=== PATIENT | female | born 1935 | race Caucasian/White ===

== ENCOUNTER 2016-08-11 19:26 | Emergency (ER) | payer MEDICARE, OTHER ==
[~2016-08-11] VITALS: Ht 152.4 cm; Wt 56.8 kg
[2016-08-11 19:34] VITALS: Ht 152.4 cm; Wt 56.8 kg
[2016-08-11 20:14] LABS: ADD SCAN DIFF NO
[2016-08-11 20:16] LABS: BASOPHILS % 0.6 % (0.0-2.0); EOSINOPHILS # 0.1 10^3/ul (0.0-0.5); HEMATOCRIT 26.2 % (37.0-47.0); LYMPHOCYTES # 2.1 10^3/ul (0.8-2.9); LYMPHOCYTES % 32.3 % (15.0-51.0); MEAN CORPUSCULAR HEMOGLOBIN 26.1 pg (29.0-33.0); MEAN CORPUSCULAR HGB CONC 30.5 g/dl (32.0-37.0); MEAN CORPUSCULAR VOLUME 85.6 fl (82.0-101.0); MEAN PLATELET VOLUME 9.5 fl (7.4-10.4); MONOCYTE # 0.6 10^3/ul (0.3-0.9); MONOCYTES % 10.1 % (0.0-11.0); NEUTROPHIL # 3.5 10^3/ul (1.6-7.5); NEUTROPHILS % 54.5 % (39.0-77.0); PLATELET COUNT 251 10^3/UL (140-415); RED BLOOD COUNT 3.06 10^6/ul (4.20-5.40); RED CELL DISTRIBUTION WIDTH 15.7 % (11.5-14.5); WHITE BLOOD COUNT 6.4 10^3/ul (4.8-10.8)
[2016-08-11 20:30] LABS: ALBUMIN 3.4 g/dl (3.3-4.9); CHLORIDE 107 mmol/L (97-110)
[2016-08-11 20:31] LABS: POTASSIUM 4.2 mmol/L (3.5-5.1); SODIUM 143 mmol/L (135-144)
[2016-08-11 20:33] LABS: ALANINE AMINOTRANSFERASE 14 IU/L (13-69); ALBUMIN/GLOBULIN RATIO 0.97; ALKALINE PHOSPHATASE 64 IU/L (42-121); ANION GAP 16 (8-16); ASPARTATE AMINO TRANSFERASE 17 IU/L (15-46); BLOOD UREA NITROGEN 32 mg/dl (7-20); CARBON DIOXIDE 24 mmol/L (21-31); CREATININE 2.99 mg/dl (0.44-1.00); GLUCOSE 103 mg/dl (70-220); TOTAL PROTEIN 6.9 g/dl (6.1-8.1)
[2016-08-11 20:34] LABS: CALCIUM 9.3 mg/dl (8.4-10.2)
[2016-08-11] MEDS ORDERED: ERGO500037 PO (20:39)
[2016-08-11] MEDS ORDERED: LOSA1TAB20 PO (20:40)
[2016-08-11] MEDS ORDERED: CLON0.2T5 PO (20:40)
[2016-08-11] MEDS ORDERED: AMLO5TAB4 PO (20:41)
[2016-08-11] MEDS ORDERED: [UNRECOGNIZED DRUG - CODE] PO (20:41)
[2016-08-11] MEDS ORDERED: ASPI-664 PO (20:42)
[2016-08-11 20:43] LABS: ACETAMINOPHEN < 10.0 ug/ml (10.0-30.0); ETHANOL < 10.0 mg/dl; SALICYLATE < 1.0 mg/dl (5.0-30.0)
[2016-08-11] MEDS ORDERED: CALC0.255 PO (20:43)
[2016-08-11] MEDS ORDERED: CARV25TA79 PO (20:44)
[2016-08-11] MEDS ORDERED: BENA40TA41 PO (20:44)
[2016-08-11] MEDS ORDERED: NIFE60TA7 PO (20:45)
[2016-08-11] MEDS ORDERED: ZOLP10TA5 PO (20:45)
[2016-08-11] MEDS ORDERED: NEPH PO (20:46)
[2016-08-11] MEDS ORDERED: PROP20TA4 PO (20:46)
[2016-08-11] MEDS ORDERED: TRAM-40 PO (20:47)
[2016-08-11] MEDS ORDERED: ROSU20TA PO (20:48)
[2016-08-11] MEDS ORDERED: OMEP40CA6 PO (20:48)
[2016-08-11] MEDS ORDERED: FURO40TA4 PO (20:49)
[2016-08-11] MEDS ORDERED: HYDR-3011 PO (20:49)
--- NOTE | 2016-08-11 20:49 | RADRPT ---
PROCEDURE: CT Brain without contrast. CLINICAL INDICATION: Altered Mental Status TECHNIQUE: A multiplanar CT of the brain was performed on a CT scanner utilizing axial imaging fro m the skull base through the vertex without IV contrast. The CTDIvol is 44.52 mGy and the DLP is 63 0.2 mGycm. One or more of the following dose reduction techniques were utilized: Automated exposur e control, adjustment of the mA and/or kV according to patient size, use of iterative reconstruction technique. COMPARISON: None FINDINGS: No evidence of intracranial hemorrhage or abnormal extra-axial fluid collection. Moderate patchy periventricular and subcortical white matter low attenuation compatible with sequela e of chronic microvascular ischemic injury. The brain parenchyma is otherwise normal attenuation a nd morphology with preservation of casarez white differentiation. The ventricles and subarachnoid space s are prominent compatible with mild central cerebral volume loss . The basal cisterns, posterior fossa contents, brainstem, craniocervical junction, orbits, pituitary axis, paranasal sinuses, mastoid air cells, and calvarium are unremarkable. IMPRESSION: 1. No intracranial hemorrhage or acute intracranial abnormality. 2. Chronic microvascular ischemic changes in the deep white matter and mild central cerebral volume loss. 3 Early ischemic injury may be occult to CT imaging and diffusion weighted MRI may be considered as clinically warranted. RPTAT:AAJJ Physician Fuentes Date Time Electronically viewed and signed by Physician Fuentes on 08/11/2016 20:49 OG/
[2016-08-11 21:48] LABS: ADD UMIC YES; URINE BILIRUBIN (Dip) NEGATIVE (NEGATIVE); URINE BLOOD (Dip) NEGATIVE (NEGATIVE); URINE COLOR LT. YELLOW (YELLOW); URINE GLUCOSE (Dip) NEGATIVE (NEGATIVE); URINE KETONES (Dip) NEGATIVE (NEGATIVE); URINE LEUKOCYTE ESTERASE (Dip) NEGATIVE (NEGATIVE); URINE NITRITE (Dip) NEGATIVE (NEGATIVE); URINE TOTAL PROTEIN (Dip) 2+ (NEGATIVE); URINE UROBILINOGEN (Dip) 0.2 E.U./dL (0.1-1.0)
[2016-08-11 22:02] LABS: BARBITURATES Negative (NEGATIVE); BENZODIAZEPINES Negative (NEGATIVE); CANNABINOIDS Negative (NEGATIVE); COCAINE Negative (NEGATIVE)
--- NOTE | 2016-08-11 22:04 | ERD ---
ER Documentation Chief Complaint Date/Time DATE: 08/11/16 TIME: 22:03 Chief Complaint ALOC,lethargic and confused during dinner,received Narcan from paramedics HPI This is an 80-year-old female who presents to the emergency room for altered mental status. According to the patient's family members this patient was eating food and started to become tired. The patient then fell asleep. There were concerned so they called 911. Paramedics arrived and stated they gave this patient Narcan with relief of her symptoms. This patient did take an Ambien before eating dinner. According to family members of patient is acting normally at this time. ROS All systems reviewed and are negative except as per history of present illness. Medications Home Meds Reported Medications Furosemide* (Furosemide*) 40 Mg Tablet, 40 MG PO QAM, TAB 08/11/16 Hydroxyzine Hcl* (Hydroxyzine Hcl*) 25 Mg Tablet, 25 MG PO QHS Y for ITCHING, # 30 TAB 08/11/16 Omeprazole* (Omeprazole*) 40 Mg Capsule.dr, 40 MG PO QAM, #30 CAP 08/11/16 Rosuvastatin Calcium* (Crestor*) 20 Mg Tablet, 20 MG PO DAILY, #30 TAB 08/11/16 Tramadol Hcl* (Ultram*) 50 Mg Tablet, 50 MG PO Q6H Y for PAIN, TAB TAKE 1 OR 2 TAB FOR PAIN 08/11/16 Multivit/Ca Carb/B Cmplx/Fa* (Ana María-Rodrigo*) 1 Tab Tab, 1 TAB PO DAILY, TAB 08/11/16 Propranolol Hcl* (Propranolol Hcl*) 20 Mg Tablet, 20 MG PO TID, TAB 08/11/16 Zolpidem Tartrate* (Zolpidem Tartrate*) 10 Mg Tablet, 10 MG PO QHS Y for INSOMNIA, #30 TAB 08/11/16 Nifedipine* (Nifedipine ER*) 60 Mg Tablet.sa, 60 MG PO BID, TAB.SA 08/11/16 Benazepril Hcl* (Benazepril Hcl*) 40 Mg Tablet, 40 MG PO DAILY, #30 TAB 08/11/16 Carvedilol* (Carvedilol*) 25 Mg Tablet, 25 MG PO DAILY, #60 TAB 08/11/16 Calcitriol* (Rocaltrol*) 0.25 Mcg Capsule, 0.25 MCG PO BID A WEEK, CAP 08/11/16 Aspirin* (Aspirin* EC) 81 Mg Tablet.dr, 81 MG PO DAILY, TAB 08/11/16 Amlodipine Besylate* (Norvasc*) 5 Mg Tablet, 5 MG PO DAILY, TAB 08/11/16 Acetaminophen (PHARBETOL) 500 Mg Tablet, 500 MG PO TID, TAB 08/11/16 Losartan-Hydrochlorothiazide (Losartan-HCTZ) 100-25 Mg Tab, 1 TAB PO DAILY, TAB 08/11/16 Clonidine Hcl* (Clonidine Hcl*) 0.2 Mg Tablet, 0.2 MG PO Q4H Y for HTN, TAB 08/11/16 Ergocalciferol (Vitamin D2) (VITAMIN D2) 50,000 Unit Capsule, 91354 UNIT PO [id number], CAP 08/11/16 Allergies Allergies: Coded Allergies: No Known Allergy (Unverified , 08/11/16) PMhx/Soc History of Surgery: No Anesthesia Reaction: No Hx Neurological Disorder: No Hx Respiratory Disorders: No Hx Cardiac Disorders: No (HTN, hyperlipidemia, ) Hx Alcohol Use: No Hx Substance Use: No Hx Tobacco Use: No Smoking Status: Never smoker Physical Exam Vitals Vital Signs Date Time Temp Pulse Resp B/P Pulse Ox O2 Delivery O2 Flow Rate FiO2 08/11/16 21:04 69 16 169/72 99 Room Air 08/11/16 20:00 76 17 181/81 100 Room Air 08/11/16 19:34 98.4 81 18 181/70 100 Physical Exam INITIAL VITAL SIGNS: Reviewed by me GENERAL: The patient is well developed and appropriate for usual state of health in no apparent distress HEENT: Pupils equal, round, and reactive to light. EOMI. There is no scleral icterus. NECK: C-spine is soft and supple, there is no meningismus. There is no cervical lymphadenopathy. LUNGS: Clear to auscultation bilaterally. There are no rales, wheezes or rhonchi. HEART: Regular rate and rhythm, no murmurs, clicks, rubs or gallops. ABDOMEN: Soft, non-tender, non-distended. There are bowel sounds in all four quadrants. No rebound or guarding. EXTREMITIES: There is no peripheral cyanosis or edema. No focal swelling or erythema. NEUROLOGICAL: The patient moves all four extremities with 5/5 strength. Cranial nerves II - XII are intact. Normal gait. Alert and oriented SKIN: There is no apparent rash or petechiae. HEME/LYMPHATIC: There is no evidence of excessive bruising or lymphedema. PSYCHIATRIC: The patient does not appear anxious or depressed. Result Diagram: 08/11/16 1950 08/11/16 1950 Results 24 hrs Laboratory Tests Test 08/11/16 19:50 08/11/16 19:58 08/11/16 21:14 Acetaminophen Level < 10.0ug/ml Alanine Aminotransferase (ALT/SGPT) 14IU/L Albumin 3.4g/dl Albumin/Globulin Ratio 0.97 Alkaline Phosphatase 64IU/L Anion Gap 16 Aspartate Amino Transf (AST/SGOT) 17IU/L Basophils # 0.010^3/ul Basophils % 0.6% Blood Urea Nitrogen 32mg/dl Calcium Level 9.3mg/dl Carbon Dioxide Level 24mmol/L Chloride Level 107mmol/L Creatinine 2.99mg/dl Direct Bilirubin 0.00mg/dl Eosinophils # 0.110^3/ul Eosinophils % 2.0% Ethyl Alcohol Level < 10.0mg/dl Globulin 3.50g/dl Glucose Level 103mg/dl Hematocrit 26.2% Hemoglobin 8.0g/dl Indirect Bilirubin 0.0mg/dl Lymphocytes # 2.110^3/ul Lymphocytes % 32.3% Mean Corpuscular Hemoglobin 26.1pg Mean Corpuscular Hemoglobin Concent 30.5g/dl Mean Corpuscular Volume 85.6fl Mean Platelet Volume 9.5fl Monocytes # 0.610^3/ul Monocytes % 10.1% Neutrophils # 3.510^3/ul Neutrophils % 54.5% Nucleated Red Blood Cells # 0.010^3/ul Nucleated Red Blood Cells % 0.0/100WBC Platelet Count 57042^3/UL Potassium Level 4.2mmol/L Red Blood Count 3.0610^6/ul Red Cell Distribution Width 15.7% Salicylates Level < 1.0mg/dl Sodium Level 143mmol/L Total Bilirubin 0.0mg/dl Total Protein 6.9g/dl White Blood Count 6.410^3/ul Bedside Glucose 111mg/dL Urine Amphetamines Screen Negative Urine Barbiturates Negative Urine Benzodiazepines Screen Negative Urine Bilirubin NEGATIVE Urine Cannabinoids Negative Urine Clarity CLEAR Urine Cocaine Screen Negative Urine Color LT. YELLOW Urine Glucose NEGATIVE% Urine Hemoglobin NEGATIVE Urine Ketones NEGATIVE Urine Leukocyte Esterase NEGATIVE Urine Microscopic RBC Pending Urine Microscopic WBC Pending Urine Nitrite NEGATIVE Urine Opiates Screen Negative Urine Specific [place] 1.020 Urine Total Protein 2+ Urine Urobilinogen 0.2 E.U./dL Urine pH 6.0 Procedures/MDM CT head without: 1. No intracranial hemorrhage or acute intracranial abnormality. 2. Chronic microvascular ischemic changes in the deep white matter and mild central cerebral volume loss. 3 Early ischemic injury may be occult to CT imaging and diffusion weighted MRI may be considered as clinically warranted. EKG: Rate/Rhythm: [Normal Sinus Rhythm] QRS, ST, T-waves: [No changes consistent w/ acute ischemia] Impression: [No evidence of ischemia or arrhythmia] This 80-year-old female presents to the emergency room for evaluation of weakness and altered mental status which was temporary and occurred after she took Ambien while eating. This patient presented to the emergency room after EMS brought the patient in. The EMS stated they give the patient Narcan with complete resolution of her symptoms. According to family members this patient took her Ambien before she started eating instead of after. When I evaluated this patient she was alert and oriented to person place and time, no focal neurological deficits. CT of the head was obtained which does not show any acute ischemia. Lab work is within normal limits. EKG is nonischemic. I talked to the family members were at bedside and state this patient is acting like her normal self. I do feel that this could have been secondary to missed timing of medications. This patient will be discharged home at this time. I advised him to return to the ER immediately if she develops any worsening symptoms and they verbalized understanding. They are comfortable with her plan of care Departure Diagnosis: Primary Impression: Altered level of consciousness Additional Impressions: Normocytic anemia Renal insufficiency Condition: Stable JAVIER NG DO Aug 11, 2016 22:04
[2016-08-11 22:08] LABS: OPIATES Negative (NEGATIVE)
[2016-08-11 22:14] LABS: URINE RBCS NONE SEEN /HPF (0)
[2016-08-11 22:35] VITALS: BP 182/76; PULSE 82; RESP 18; TEMP 97.8
== END 2016-08-11 22:35 | disposition home or self-care (01) ==
LOC: E/R 19:26
DX: R40.4 Transient alteration of awareness (principal); R40.2142 Coma scale, eyes open, spontaneous, at arrival to emergency department; D64.9 Anemia, unspecified; N28.9 Disorder of kidney and ureter, unspecified; R40.2362 Coma scale, best motor response, obeys commands, at arrival to emergency department; I10 Essential (primary) hypertension; R40.2242 Coma scale, best verbal response, confused conversation, at arrival to emergency department; Z79.82 Long term (current) use of aspirin
CPT/HCPCS: 36415; 70450; 80053; 80306; 80307; 81001; 81003; 82962; 85025

== ENCOUNTER 2017-06-02 13:37 | Emergency (ER) | END 2017-06-02 17:37 | disposition home or self-care (01) ==

== ENCOUNTER 2018-11-15 14:34 | Emergency (ER) | payer MEDICARE, OTHER ==
[2018-11-15] VITALS (10 sets, daily range): BP systolic 128–182; BP diastolic 55–83; PULSE 71–81; RESP 18–20
[~2018-11-15] VITALS: Wt 51.4 kg
[~2018-11-15 14:34] MED LIST: AMLO5TAB4 PO; ASPI-817 PO; BENA40TA56 PO; CALC0.255 PO; CARV25TA79 PO; CLON0.2T5 PO; CRES20 PO; ERGO500013 PO; FURO40TA4 PO; HYDR-843 PO; LOSA1TAB25 PO; NEPH PO; NIFE60TA18 PO; OMEP40CA6 PO; PROP20TA4 PO; TRAM50TA PO; ZOLP10TA5 PO; [UNRECOGNIZED DRUG - CODE] PO
[2018-11-15] MEDS ORDERED: ONDANSETRON 4 MG INJ IV STA (14:49)
[2018-11-15] MEDS ORDERED: LABETALOL HCL 20MG INJ ONE (14:56)
[2018-11-15] MEDS: niCARdipine-NS 0.1MG/ML DRIP 200 ML IV STA ×2 (15:06→15:08)
[2018-11-15] MEDS ORDERED: IOHEXOL 300MG/ML 150 ML BTL ONE (15:08)
[2018-11-15] MEDS ORDERED: SOD CHLORIDE 0.9% 100 ML ONE (15:08)
[2018-11-15] MEDS ORDERED: ALTEPLASE 100 MG INJ IV* ONE (15:30)
[2018-11-15] MEDS ORDERED: ALTEPLASE (tPA) 1 MG/ML BOLUS SYG IV* ONE (15:30)
[2018-11-15] MEDS ORDERED: SOD CHLORIDE 0.9% 50 ML IV ONE (15:30)
[2018-11-15] MEDS ORDERED: NEPH PO (15:53)
[2018-11-15] MEDS ORDERED: BENA40TA56 PO (15:53)
[2018-11-15] MEDS ORDERED: ROPI0.5T2 PO (15:53)
[2018-11-15] MEDS ORDERED: APIX2.5T PO (15:54)
[2018-11-15] MEDS ORDERED: CLON1PAT3 TD (15:54)
[2018-11-15] MEDS ORDERED: CARV25TA79 PO (15:55)
[2018-11-15] MEDS ORDERED: HYDR-843 PO (15:56)
[2018-11-15] MEDS ORDERED: CLON0.2T5 PO (15:57)
[2018-11-15] MEDS ORDERED: AMIO200T4 PO (15:57)
[2018-11-15] MEDS ORDERED: OMEP40CA6 PO (15:58)
[2018-11-15] MEDS ORDERED: IBUP-1542 PO (15:59)
[2018-11-15] MEDS ORDERED: ZOLP10TA5 PO (15:59)
[2018-11-15] MEDS ORDERED: LINA290C PO (15:59)
[2018-11-15] MEDS ORDERED: LEVO75TA5 PO (16:00)
[2018-11-15] MEDS ORDERED: ASPI-817 PO (16:00)
[2018-11-15] MEDS ORDERED: ERGO500013 PO (16:01)
[2018-11-15] MEDS ORDERED: ACET-141 PO (16:01)
[2018-11-15] MEDS ORDERED: LOSA1TAB25 PO (16:02)
[2018-11-15] MEDS ORDERED: PROP20TA4 PO (16:02)
[2018-11-15] MEDS ORDERED: TRAZ-111 PO (16:04)
--- NOTE | 2018-11-15 16:05 | ERD ---
ER Documentation Chief Complaint Chief Complaint SEE OTHER TRIAGE HPI This is an 83-year-old female who presents via EMS for possible acute stroke. History is extremely limited. The patient is nonverbal and has a gaze preference. It was reported that just 30 minutes prior to arrival after dialysis the patient became a phasic with gaze preference and unable to lift her right upper extremity. Code stroke was initiated upon arrival. Remainder of HPI is limited. A immediate rn recruitment was attempted. I spoke to the family on the phone. See documentation below. ROS Critical patient unable to assess Medications Home Meds Discontinued Reported Medications Furosemide* (Furosemide*) 40 Mg Tablet, 40 MG PO QAM, TAB 08/11/16 Hydroxyzine Hcl* (Hydroxyzine Hcl*) 25 Mg Tablet, 25 MG PO QHS PRN for ITCHING, #30 TAB 08/11/16 Omeprazole* (Omeprazole*) 40 Mg Capsule.dr, 40 MG PO QAM, #30 CAP 08/11/16 Rosuvastatin Calcium* (Crestor*) 20 Mg Tablet, 20 MG PO DAILY, #30 TAB 08/11/16 Tramadol Hcl* (Ultram*) 50 Mg Tablet, 50 MG PO Q6H PRN for PAIN, TAB TAKE 1 OR 2 TAB FOR PAIN 08/11/16 Multivit/Ca Carb/B Cmplx/Fa* (Ana María-Rodrigo*) 1 Tab Tab, 1 TAB PO DAILY, TAB 08/11/16 Propranolol Hcl* (Propranolol Hcl*) 20 Mg Tablet, 20 MG PO TID, TAB 08/11/16 Zolpidem Tartrate* (Zolpidem Tartrate*) 10 Mg Tablet, 10 MG PO QHS PRN for INSOMNIA, #30 TAB 08/11/16 Nifedipine* (Nifedipine ER*) 60 Mg Tablet.sa, 60 MG PO BID, TAB.SA 08/11/16 Benazepril Hcl* (Benazepril Hcl*) 40 Mg Tablet, 40 MG PO DAILY, #30 TAB 08/11/16 Carvedilol* (Carvedilol*) 25 Mg Tablet, 25 MG PO DAILY, #60 TAB 08/11/16 Calcitriol* (Rocaltrol*) 0.25 Mcg Capsule, 0.25 MCG PO BID A WEEK, CAP 08/11/16 Aspirin* (Aspirin* EC) 81 Mg Tablet.dr, 81 MG PO DAILY, TAB 08/11/16 Amlodipine Besylate* (Norvasc*) 5 Mg Tablet, 5 MG PO DAILY, TAB 08/11/16 Acetaminophen (PHARBETOL) 500 Mg Tablet, 500 MG PO TID, TAB 08/11/16 Losartan-Hydrochlorothiazide (Losartan-HCTZ) 100-25 Mg Tab, 1 TAB PO DAILY, TAB 08/11/16 Clonidine Hcl* (Clonidine Hcl*) 0.2 Mg Tablet, 0.2 MG PO Q4H PRN for HTN, TAB 08/11/16 Ergocalciferol (Vitamin D2) (VITAMIN D2) 50,000 Unit Capsule, 79426 UNIT PO [id number], CAP 08/11/16 Allergies Allergies: Coded Allergies: No Known Allergy (Unverified , 11/15/18) PMhx/Soc History of Surgery: No Anesthesia Reaction: No Hx Neurological Disorder: No Hx Respiratory Disorders: No Hx Cardiac Disorders: No (HTN, hyperlipidemia, ) Hx Psychiatric Problems: No Hx Alcohol Use: No Hx Substance Use: No Hx Tobacco Use: No FmHx Family History: diabetes Physical Exam Vitals Vital Signs Date Temp Pulse Resp B/P (MAP) Pulse Ox O2 O2 Flow FiO2 Time Delivery Rate 11/15/18 97.6 81 20 191/89 93 15:08 (123) Physical Exam General: Nonverbal, right facial droop, gaze preference to left Head: Normocephalic, atraumatic. Eyes: Pupils equally reactive, EOM intact ENT: Moist mucous membranes Neck: Supple, no lymphadenopathy Respiratory: Lungs clear bilaterally, no distress Cardiovascular: RRR, no murmurs, rubs, or gallops Abdominal: Soft, non-tender, non-distended, no peritoneal signs : Deferred MSK: No edema, no unilateral swelling Neurologic: Patient is nonverbal she has a left gaze preference. She has paralysis of her right upper extremity. Only subtle movement of her right lower extremity. She is moving her left upper extremity and left lower extremity. Exam is somewhat limited because the patient's leg which barrier, poor co operation. NIHSS calculated to be 17 Skin: No rash Psych: Normal mood Result Diagram: 11/15/18 1449 11/15/18 1449 Results 24 hrs Laboratory Tests Test 11/15/18 14:49 11/15/18 15:08 White Blood Count 9.2 10^3/ul Red Blood Count 3.83 10^6/ul Hemoglobin 10.4 g/dl Hematocrit 34.2 % Mean Corpuscular Volume 89.3 fl Mean Corpuscular Hemoglobin 27.2 pg Mean Corpuscular Hemoglobin Concent 30.4 g/dl Red Cell Distribution Width 17.4 % Platelet Count 201 10^3/UL Mean Platelet Volume 9.7 fl Immature Granulocytes % 0.500 % Neutrophils % 74.4 % Lymphocytes % 16.3 % Monocytes % 6.0 % Eosinophils % 2.3 % Basophils % 0.5 % Nucleated Red Blood Cells % 0.0 /100WBC Immature Granulocytes # 0.050 10^3/ul Neutrophils # 6.8 10^3/ul Lymphocytes # 1.5 10^3/ul Monocytes # 0.6 10^3/ul Eosinophils # 0.2 10^3/ul Basophils # 0.1 10^3/ul Nucleated Red Blood Cells # 0.0 10^3/ul Prothrombin Time 12.8 Sec Prothrombin Time Ratio 1.0 INR International Normalized Ratio 0.95 Activated Partial Thromboplast Time 35.4 Sec Sodium Level 139 mmol/L Potassium Level 4.0 mmol/L Chloride Level 96 mmol/L Carbon Dioxide Level 32 mmol/L Anion Gap 11 Blood Urea Nitrogen 14 mg/dl Creatinine 2.72 mg/dl Est Glomerular Filtrat Rate mL/min mL/min Glucose Level 127 mg/dl Hemoglobin A1c 5.0 % Calcium Level 8.9 mg/dl Total Bilirubin 0.3 mg/dl Direct Bilirubin 0.00 mg/dl Indirect Bilirubin 0.3 mg/dl Aspartate Amino Transf (AST/SGOT) 21 IU/L Alanine Aminotransferase (ALT/SGPT) 7 IU/L Alkaline Phosphatase 114 IU/L Creatine Kinase < 20 IU/L Creatine Kinase Index Creatinine Kinase MB (Mass) 0.48 ng/ml Troponin I 0.113 ng/ml Total Protein 8.4 g/dl Albumin 4.1 g/dl Globulin 4.30 g/dl Albumin/Globulin Ratio 0.95 Triglycerides Level 180 mg/dl Cholesterol Level 179 mg/dl LDL Cholesterol, Calculated 98 mg/dl HDL Cholesterol 45 mg/dl Cholesterol/HDL Ratio 3.9 RATIO Ethyl Alcohol Level < 10.0 mg/dl Bedside Glucose 133 mg/dL Current Medications Medications Dose Sig/Jcarlos Start Time Status Last (Trade) Ordered Route PRN Stop Time Admin Dose Reason Admin Ondansetron 4 mg ONCE STAT 6/13/19 DC HCl (Zofran IV 14:49 Inj) 11/15/18 14:50 Labetalol 20 mg STK-MED 11/15/18 DC HCl ONCE .ROUTE 14:56 (Labetalol) 11/15/18 14:57 Nicardipine 200 ml @ ONCE STAT 11/15/18 HCl 50 mls/hr IV 14:57 11/15/18 18:56 IV Flush 10 ml STK-MED 11/15/18 DC (NS 10 ml) ONCE .ROUTE 15:08 11/15/18 15:09 Sodium 100 ml @ ud STK-MED 11/15/18 DC Chloride ONCE .ROUTE 15:08 11/15/18 15:09 Iohexol 150 ml STK-MED 11/15/18 DC (Omnipaque ONCE .ROUTE 15:08 300mg/ ml) 11/15/18 15:09 Alteplase, 4.6 mg BOLUS OVER 1 11/15/18 DC 11/15/18 Recombinant MIN ONCE 15:30 15:45 (Activase) IV* 11/15/18 15:31 Alteplase, 41.6 mg ISCHEMIC 11/15/18 DC 11/15/18 Recombinant STROKE ONCE 15:30 15:46 (Activase) IV* 11/15/18 15:31 Sodium 50 ml @ 0 FLUSH AFTER 11/15/18 DC Chloride mls/hr TPA ONCE IV 15:30 11/15/18 15:31 Procedures/MDM EKG, MONITORS, & DIAGNOSTIC IMAGING: EKG: I reviewed and interpreted a 12-lead EKG. Rhythm: Normal sinus rhythm Ectopy: None Arrhythmia: None Intervals: No abnormalities ST segments: No elevations or depressions T waves: No contiguous inversions Interpretation: No acute cardiac ischemia Chest x-ray: I reviewed and interpreted a 1 view of the chest Mediastinum: No enlargement Cardiac silhouette: cardiomegaly Airspace: Interstitial process Bones: No evidence of fracture Interpretation: No acute cardiopulmonary process CT Brain: IMPRESSION: Cardiomegaly and thoracic aortic atherosclerosis with mild central pulmonary vascular congestion. Stable rightward tracheal deviation secondary to a large thyroid goiter. RPTAT: AAQQ CTA Head and Neck: Verbal report of a acute left M1 occlusion LAB INTERPRETATION: Labs reviewed, no absolute contraindications MEDICAL DECISION MAKING: The patient presents with acute neurologic deficit including what appears to be a left MCA ischemic stroke. A code stroke was rapidly initiated. ER COURSE: Stroke assessment and timing: Last known well time: 1403 Arrival to ED: 1434 Stroke code activation: [address] scan: [address]: See nursing documentation Initial neurology discussion: 1447 again at 1500 NIHSS: 17 TPA decision-making: The patient is a TPA candidate however has a few potential contraindications including recent heparin dosing, coagulation profile needed. Additionally the patient's blood pressure is greater than 185/110. Blood pressure control needed prior to TPA. Interventional decision-making: Patient is a interventional candidate given large vessel occlusion in the M1 segment. Patient will be transferred for higher level of care * At 1500 there was a conversation with Dr. Andersen that a CTA should be performed, the patient is pending blood pressure control with Cardene and laboratory results. We need to have the patient's coagulation results given dialysis patient with recent heparin administration * At 1511 I was able to speak to the granddaughter, Rylee, contact number is [phone]. She understands the critical nature and need for TPA. Risk benefits and alternatives were discussed with her. She is discussing with her uncle who is the patient's son. * They called back shortly after and agree with TPA. They are in route * Final lab results at 1528 * Final conversation with Dr. Andersen at 1531, states okay with TPA if blood pressure is controlled less than 185/110 * At 1536 blood pressure still 209/82 * At 1539 systolic blood pressure still 190 despite Cardene drip. Titration occurring * At 1540 the blood pressure is 180/79. TPA bolus timin TPA drip timin Reevaluation after TPA: Patient was slightly improved verbal response Stroke neurologist on-call: Dr. Andersen Critical Care Note: Total time: 50 minutes Indication/Organ System Threat: Acute neurologic deficit and stroke code activation that requires emergent evaluation and assessment to prevent neurologic compromising collapse. I spent the above amount of critical care time with the patient, not including billable procedures. This included chart review, consultations, repeat bedside evaluations, and titration of appropriate medications to prevent cardiopulmonary or respiratory collapse. * At [address] Mcgraw at [facility]. He has accepted the case and is sending critical care transport * The patient continues to protect her airway and does not require intubation prior to transportation. I kept the patient and/or family informed of laboratory and diagnostic imaging results throughout the emergency room course. DISPOSITION PLAN: Patient being transferred to [facility] for higher level of care Departure Diagnosis: Primary Impression: Acute ischemic left MCA stroke Additional Impressions: Hypertensive emergency End stage renal disease on dialysis Condition: Stable SAM OLVERA MD Nov 15, 2018 16:04
--- NOTE | 2018-11-15 17:35 | STROKE ---
Date/Time of Note Date/Time of Note DATE: 11/15/18 TIME: 15:44 Patient Information General Patient location: emergency Arrival Date Age 83 Gender female Weight 51.4 kg POC Glucose Glucose Result Bedside Glucose - 72 Hours Test 11/15/18 15:08 Bedside Glucose 133 mg/dL (70-220) Vital Signs Vital Signs Vital Signs Date Temp Pulse Resp B/P (MAP) Pulse Ox O2 O2 Flow FiO2 Time Delivery Rate 11/15/18 97.6 81 20 191/89 93 15:08 (123) Patient History Current Medications Allergies: Coded Allergies: No Known Allergy (Unverified , 11/15/18) Labs Coagulation Labs: Coagulation Test 11/15/18 14:49 Activated Partial Thromboplast Time 35.4 Sec (23.0-35.0) History & Physical Patient History Notes Pt Hx Reviewed History of Present Illness 83yo ESRD had dialysis, h/o thyroid mass, then confused with gaze to left, right sided weakness, and speech difficulty. Last normal 14:03. Patient speaks Tajik so spanish interpreter/translator was used but patient was unable to provide any history. Systolic BP 216. Review of Systems All Other Systems: Reviewed and Negative (unable to obtain due to clinical condidtion) NIH Stroke Scale NIH Stroke Scale Rnone7Br l4d LOC Questions: Zhfum9g OC Commands: Oznrc6f est Gaze: Mlsmg2u al: Zgjmn3o ial Palsy: Nyfvn9c tor Arm - Left: Vofwr1x ight: Alqjv1j - Left: Npwpf1h - Right: Jbjoz0k : Yeqgx8z Weuoj1p st Language: Bpviw1u thria: Jdkgp0q Bzqjg0o 4Bd Total Score: Kysen8x te/Time Recorded DATE: 11/15/18 TIME: 15:44 Submitted By Edouard Andersen t-PA Imaging Review Imaging Reviewed: Yes Date/Time Imaging Reviewed DATE: 11/15/18 TIME: 15:00 Imaging Findings no acute changes t-PA Administration Recommendation: Yes Weight 51.4 kg t-PA Recommendation Date/Time 11/15/18 15:30 Recommedation submitted by Edouard Andersen Recommendations Impression Diagnosis I63.512 Left MCA ischemic stroke Disposition transfer to [facility] stroke center Recommendation 83yo F presents with acute onset right sided weakness and speech difficulty. Neurological exam is notable for patient requiring repeated stimulation to attend, unable to answer questions or follow commands, with left gaze preference, right face, arm, and bilateral leg flaccid paralysis, no response to pain in right arm, decreased response to pain in the right leg, and being mute. I believe the patient is having an acute ischemic stroke. I discussed the risks, benefits, and alternatives of IV TPA in detail with the attending who is agreeable to my recommendation for IV TPA once systolic BP is less than 185 and if aPTT is within appropriate range. I recommend nicardipine drip for treatment of BP. I recommend stat CTA of the head and neck to de termine if the patient is a neurointerventional candidate. 15:30- I was called by Dr. Esposito and informed that aPTT= 35.4 and normal range is up to 35. I agreed that TPA is recommended once BP is less than 185. I was informed CTA was completed but images are still loading. 15:43- I called Dr. Esposito after reviewing CTA images. CTA demonstrates left M occlusion and recommend transfer for possible neurointerventional treatment. Dr. Esposito informed me that BP was now less than 185 and TPA was being administere d. He also informed me that patient has been accepted for transfer at [facility] for possible neurointerventional treatment. I recommend further workup include MRI Brain without gadolinium and transthoracic echocardiogram.I recommend post-TPA orders be followed. I recommend blood pressure be maintained less than 180/105. Lrebd2Ar Post t-PA Order recommendation: [id number] Document q15 min vitals Document q15 min neuro checks Document q15 min bleeding checks Refer to t-PA Order Sets [id number] Diagnostic Labs: Tsaot1t Lipid Proile Hgb A1C CMP CBC w/Diff Coags [id number] Therapy: Itahc5x Physical Therapy Speech Therapy Occupational [id number] Recommendations: Jrlba9i Bedside Swallow Evaluation Pnumatic Compression Devices Avoid Michel Catheter Stroke Education Smoking Education EDOUARD ANDERSEN Nov 15, 2018 17:31
== END 2018-11-15 17:56 | disposition short-term general hospital (02) ==
LOC: E/R 14:34
DX: I63.412 Cerebral infarction due to embolism of left middle cerebral artery (principal); I12.0 Hypertensive chronic kidney disease with stage 5 chronic kidney disease or end stage renal disease; N18.6 End stage renal disease; R40.2112 Coma scale, eyes open, never, at arrival to emergency department; R40.2342 Coma scale, best motor response, flexion withdrawal, at arrival to emergency department; R40.2212 Coma scale, best verbal response, none, at arrival to emergency department; Z99.2 Dependence on renal dialysis; Z79.82 Long term (current) use of aspirin
CPT/HCPCS: 51702; 70450; 70496; 70498; 71045; 80053; 80061; 80307; 82550; 82553; 82962; 83036; 84484; 85025; 85610; 85730; 93005; 96374; 96375; 99285; J2405; J2997; Q9967